=== PATIENT | female | born 1955 | race Caucasian/White ===

== ENCOUNTER 2016-12-20 09:56 | Outpatient (CLI) | payer OTHER ==
--- NOTE | 2016-12-20 10:24 | DIAGNOSTIC IMAGING REPORT ---
PROCEDURE: XR CHEST 2 VIEW INDICATION: COUGH NICOTINE ADDICTION TECHNIQUE: PA and lateral view. COMPARISON: None. FINDINGS: Minor left basilar scarring. Cardiovascular structures are normal. Moderate degenerative changes of the thoracic spine. No significant interval change. IMPRESSION: 1. No acute changes.
== END 2016-12-20 23:00 ==
LOC: XR SRH 09:56
DX: R05 Cough (principal); F17.200 Nicotine dependence, unspecified, uncomplicated